=== PATIENT | male | born 1990 | race Two or more races ===

== ENCOUNTER 2023-10-29 02:47 | Emergency (ER) | payer OTHER ==
[~2023-10-29] VITALS: Ht 175.3 cm; Wt 61.2 kg
[2023-10-29] MEDS ORDERED: ONDANSETRON HCL/PF 4 MG/2 ML VIAL ONE (03:09)
[2023-10-29] MEDS: ONDANSETRON HCL/PF - ER 4 MG/2 ML VIAL IV ONE (03:13)
[2023-10-29 09:56] VITALS: BP 118/77; TEMP 98.8; O2SAT 98
== END 2023-10-29 09:57 | disposition home or self-care (01) ==
LOC: ER 02:50
DX: F10.129 Alcohol abuse with intoxication, unspecified (principal); Y90.9 Presence of alcohol in blood, level not specified
CPT/HCPCS: 99285; 96374; 82962; J2405